=== PATIENT | female | born 1965 | race Caucasian/White ===

== ENCOUNTER 2017-01-31 22:40 | Observation (INO) | payer SELFPAY ==
[~2017-01-31] VITALS: Ht 157.5 cm; Wt 90.9 kg
[~2017-01-31 22:40] MED LIST: ACETTAB3 OR; AMOXICILLIN875 MG OR; ANTIDEPRESSANT; ANUCORT-HC25 MG RE; ANUSOL-HC25 MG RE; ASPIRIN EC81 MG PO; ATORVASTATIN CA40 MG PO; AUGMENTIN500TAB PO; AZITHROMYCIN500 MG PO; BENADRYL 50MG C50 MG OR; BENAZEPRIL10 M1 PO; BENAZEPRIL10 MG OR; BENAZEPRIL10 MG PO; BENZOCAINE 20% RE; BUSPAR10 M1 PO; BUSPAR15 M1 PO; BUTAL/APAP1 TAB OR; CIPROFLOXACIN250 MG PO; CIPROFLOXACN500 MG PO; CLOPIDOGREL75 MG PO; COZAAR100 MG OR; DARVOCET N-100100 - OR; DEPO-MEDROL80 MG/ML IM; EFFEXOR XR150 MG OR; EFFEXOR XR150 MG PO; EFFEXOR75 MG PO; FLEXERIL OR; FLEXERIL PO; FLEXERIL10 MG PO; GABAPENTIN300 MG PO; HALOPERIDOL0.5 MG PO; HYDROCHLOROTH12.5 MG OR; HYDROCO/APAP1 T10 PO; HYZAAR1 TA1 OR; IBUPROFEN600 MG PO; INDERAL 20MG TA20 MG OR; INDERAL 20MG TA20 MG PO; INDERAL 40MG TA40 MG OR; INDERAL 40MG TA40 MG PO; ISOSORB DIN30 MG PO; KEFLEX250 MG OR; KLONOPIN0.5 MG PO; KLONOPIN1 MG PO; LASIX20 MG OR; LIPITOR40 M1 PO; LORTAB 5 OR; LORTAB 7.5 OR; LORTAB 7.5 PO; MEDDOSEPAK OR; MEDDOSEPAK PO; MEDROL4 M1 PO; MELOXICAM7.5 MG OR; MELOXICAM7.5 MG PO; METRONIDAZOL500 MG PO; NAPROSYN500 MG PO; NEURONTIN300 MG PO; NEVANAC 0.1% OP; NITROSTAT0.4 MG SL; NORCO1 TA2 PO; NUPERCAINAL1 % RE; PRILOSEC20 MG OR; PRILOSEC20 MG/CAP PO; PROPANOLOL OR; PROPRANOLOL; PROPRANOLOL HCL20 MG PO; PROPRANOLOL PR; PROPRANOLOL20 MG OR; PROPRANOLOL40 MG OR; PROPRANOLOL80 M1 PO; ROBAXIN-750750 MG PO; TAM75CAP OR; TRAMADOL HCL50 MG PO; VENLAFAXINE HC150 MG PO; VENLAFAXINE HCL75 M1 PO; VENLAFAXINE150 M1; VENLAFAXINE75 M1 PO; VENLAFAXINE75 MG PO; VISTARIL 50MG C50 M1 PO; VISTARIL OR; WELLBUTRI1 OR; XANAX0.25 MG OR; ZANTAC 150 MAX150 MG PO; ZANTAC25 MG OR; ZOCOR20 M1 PO; ZOFRAN4 MG/TAB PO; ZOLPIDEM5 M1 PO; ZYMAR OP; ZYRTEC D OR
[2017-01-31 23:56] LABS: HEMATOCRIT 38.3 % (37.0-47.0); HEMOGLOBIN 13.3 g/dl (12.0-16.0); IMMATURE GRANULOCYTES 0.4 % (0.0-1.0); MEAN CELL VOLUME 90.1 fL CALC (80.0-100.0); MEAN CORPUSCULAR HGB 31.3 pG CALC (26.0-32.0); MEAN CORPUSCULAR HGB CONC 34.7 g/L CALC (32.0-36.0); NEUT# 4.01 thou/uL (2.00-7.15); RED BLOOD COUNT 4.25 mill/uL (4.20-5.60); RED CELL DISTRI WIDTH 12.8 % (11.5-15.5)
[2017-02-01 00:11] LABS: ALBUMIN 4.5 g/dL (3.2-5.0); ALKALINE PHOSPHATASE 120 u/l (38-126); ANION GAP 17 (6-22 (CALC)); BILIRUBIN, TOTAL 0.3 mg/dL (0.0-1.4); BUN 16 mg/dL (7-17); BUN/CREATININE RATIO 17 (12-20 (CALC)); CARBON DIOXIDE 24 mmol/l (22-30); CHLORIDE 110 mmol/l (95-108); GFR 58 ML/MIN (>=60 (CALC)); GFR FOR AFR.AMER. > 60 ML/MIN (>=60 (CALC)); GLUCOSE 116 mg/dL (65-105); LIPASE 124 u/l (23-300); POTASSIUM 4.2 mmol/l (3.5-5.1); SGOT/AST 25 u/l (14-36); SGPT/ALT 34 u/l (9-52); SODIUM 146 mmol/l (137-146); TOTAL PROTEIN 7.2 g/dL (6.3-8.2)
[2017-02-01 00:12] LABS: ACT PARTIAL THROMBO TIME 24.3 SECONDS (20.0-32.5); INTERNATIONAL NORMALIZED RATIO 0.9 RATIO (0.7-1.3); PROTHROMBIN TIME 10.3 SECONDS (9.0-12.5)
[2017-02-01 00:23] LABS: MYOGLOBIN 40 ng/mL (0 - 62)
[2017-02-01 02:11] VITALS: BP 111/68
[2017-02-01 06:20] VITALS: BP 120/74
[2017-02-01 07:55] VITALS: BP 130/88
[2017-02-01 08:10] LABS: URINE BILIRUBIN - DIPSTICK NEGATIVE (NEGATIVE); URINE BLOOD DIPSTICK SMALL (NEGATIVE); URINE COLOR YELLOW; URINE GLUCOSE - DIPSTICK NEGATIVE (NEGATIVE); URINE KETONE NEGATIVE (NEGATIVE); URINE NITRITE - DIPSTICK NEGATIVE (Negative); URINE PROTEIN - DIPSTICK NEGATIVE (NEG-TRACE); URINE SPECIFIC GRAVITY 1.015; URINE UROBILINOGEN - DIPSTICK 0.2 E.U./dL (0.2)
[2017-02-01 08:13] LABS: URINE BACTERIA FEW hpf; URINE CLARITY HAZY; URINE EPITHELIAL CELLS FEW EPI/hpf (0-FEW); URINE LEUK ESTERASE SMALL (NEGATIVE)
[2017-02-01 08:17] LABS: COCAINE NEGATIVE (NEGATIVE); TETRAHYDROCANNABIONOL NEGATIVE (NEGATIVE)
[2017-02-01 08:18] LABS: BARBITURATES NEGATIVE (NEGATIVE); METHADONE NEGATIVE (NEGATIVE); OXCYCODONE NEGATIVE (NEGATIVE); TRICYLIC ANTIDEPRESSANTS POSITIVE (NEGATIVE)
[2017-02-01 12:00] VITALS: BP 138/79
[2017-02-01] MEDS ORDERED: KLONOPIN1 MG PO (12:36)
[2017-02-01] MEDS ORDERED: NAPROXEN500 MG PO (12:37)
[2017-02-01] MEDS ORDERED: ATORVASTATIN CA10 MG PO (12:40)
[2017-02-01] MEDS ORDERED: PLAVIX75 MG PO (12:40)
[2017-02-01] MEDS ORDERED: ADULT ASPIRIN E81 MG PO (12:40)
== END 2017-02-01 13:55 | disposition home or self-care (01) | DRG 313 ==
LOC: ED 22:40 → ED-I 02-01 00:40 → ED 02-01 01:00 → MS2 02-01 01:01
PROVIDERS: Emergency Medicine; ADMIT Internal Medicine; ATTEND Internal Medicine
DX: R07.89 Other chest pain (principal); I10 Essential (primary) hypertension; I25.10 Atherosclerotic heart disease of native coronary artery without angina pectoris; I48.91 Unspecified atrial fibrillation; G50.0 Trigeminal neuralgia; E03.9 Hypothyroidism, unspecified; F17.210 Nicotine dependence, cigarettes, uncomplicated; F41.1 Generalized anxiety disorder; I25.2 Old myocardial infarction; F43.10 Post-traumatic stress disorder, unspecified; Z95.5 Presence of coronary angioplasty implant and graft; Z79.02 Long term (current) use of antithrombotics/antiplatelets
CPT/HCPCS: G0378

== ENCOUNTER 2018-11-29 11:44 | Emergency (ER) | payer MEDICARE ==
[~2018-11-29] VITALS: Ht 157.5 cm; Wt 92.3 kg
[~2018-11-29 11:44] MED LIST changes: +ADULT ASPIRIN E81 MG PO; +ATORVASTATIN CA10 MG PO; +NAPROXEN500 MG PO; +PLAVIX75 MG PO
[2018-11-29] MEDS ORDERED: CLONAZEPAM1 MG PO (12:04)
[2018-11-29 12:40] LABS: HEMOGLOBIN 13.8 g/dl (12.0-16.0); IMMATURE GRANULOCYTES 0.3 % (0.0-5.0); MEAN CELL VOLUME 90.1 fL CALC (80.0-100.0); MEAN CORPUSCULAR HGB 30.3 pG CALC (26.0-32.0); MEAN CORPUSCULAR HGB CONC 33.7 g/L CALC (32.0-36.0); RED BLOOD COUNT 4.55 mill/uL (4.20-5.60); RED CELL DISTRI WIDTH 12.8 % (11.5-15.5)
[2018-11-29 12:55] LABS: ALBUMIN 4.6 g/dL (3.2-5.0); CREATININE 1.2 mg/dL (0.5-1.0); POTASSIUM 4.6 mmol/l (3.5-5.1); TOTAL PROTEIN 7.7 g/dL (6.3-8.2)
[2018-11-29 13:02] LABS: BILIRUBIN, TOTAL 0.5 mg/dL (0.0-1.4)
[2018-11-29 13:05] LABS: URINE BILIRUBIN - DIPSTICK NEGATIVE (NEGATIVE); URINE BLOOD DIPSTICK TRACE-INTACT (NEGATIVE); URINE COLOR YELLOW; URINE GLUCOSE - DIPSTICK NEGATIVE (NEGATIVE); URINE KETONE NEGATIVE (NEGATIVE); URINE LEUK ESTERASE LARGE (NEGATIVE); URINE NITRITE - DIPSTICK NEGATIVE (Negative); URINE PROTEIN - DIPSTICK 30 mg/dL (NEG-TRACE); URINE SPECIFIC GRAVITY 1.025; URINE UROBILINOGEN - DIPSTICK 0.2 E.U./dL (0.2)
[2018-11-29 13:22] LABS: URINE BACTERIA MODERATE hpf; URINE SQUAMOUS EPITHELIAL CELL FEW EPI/hpf (0-FEW); URINE WBC 20-50 WBC/hpf (0-5)
[2018-11-29] MEDS ORDERED: KEFLEX500 MG PO (13:50)
[2018-11-29 14:11] VITALS: BP 116/70
== END 2018-11-29 14:26 | disposition home or self-care (01) ==
LOC: ED 11:44
DX: N39.0 Urinary tract infection, site not specified (principal); I10 Essential (primary) hypertension; I25.2 Old myocardial infarction; B96.20 Unspecified Escherichia coli [E. coli] as the cause of diseases classified elsewhere; Z16.12 Extended spectrum beta lactamase (ESBL) resistance; Z95.5 Presence of coronary angioplasty implant and graft

== ENCOUNTER 2018-12-01 10:50 | Emergency (ER) | payer MEDICARE ==
[~2018-12-01] VITALS: Ht 157.5 cm; Wt 92.0 kg
[~2018-12-01 10:50] MED LIST changes: +CLONAZEPAM1 MG PO; +KEFLEX500 MG PO
[2018-12-01] MEDS ORDERED: RISPERIDONE0.5 MG PO (11:05)
[2018-12-01] MEDS ORDERED: NITROFURANTN100 M2 PO (11:47)
[2018-12-01 12:05] VITALS: BP 115/58
== END 2018-12-01 12:05 | disposition home or self-care (01) ==
LOC: ED 10:50
DX: N39.0 Urinary tract infection, site not specified (principal); B96.20 Unspecified Escherichia coli [E. coli] as the cause of diseases classified elsewhere; I10 Essential (primary) hypertension; I25.2 Old myocardial infarction; Z16.12 Extended spectrum beta lactamase (ESBL) resistance

== ENCOUNTER 2019-04-11 | Emergency (ER) | payer MEDICARE ==
[~2019-04-11] MED LIST changes: +AMBIEN5 MG PO; +HYDROXYCHLOR200 M1 PO; +HYDROXYZINE HCL25 M1 PO; +LEVOTHYROXIN75 MCG PO; +NITROFURANTN100 M2 PO; +RISPERIDONE0.5 MG PO; +WELLBUTRIN XL300 MG PO
[2019-04-11] MEDS ORDERED: BENAZEPRIL5 MG PO (14:00)
[2019-04-11 16:12] LABS: URINE BILIRUBIN - DIPSTICK NEGATIVE (NEGATIVE); URINE BLOOD DIPSTICK TRACE-INTACT (NEGATIVE); URINE COLOR YELLOW; URINE GLUCOSE - DIPSTICK NEGATIVE (NEGATIVE); URINE KETONE NEGATIVE (NEGATIVE); URINE LEUK ESTERASE LARGE (NEGATIVE); URINE NITRITE - DIPSTICK NEGATIVE (Negative); URINE PROTEIN - DIPSTICK NEGATIVE (NEG-TRACE); URINE UROBILINOGEN - DIPSTICK 0.2 E.U./dL (0.2)
[2019-04-11 16:18] LABS: URINE BACTERIA FEW hpf; URINE SQUAMOUS EPITHELIAL CELL FEW EPI/hpf (0-FEW); URINE WBC TNTC WBC/hpf (0-5)
[2019-04-11] MEDS ORDERED: CIPROFLOXACN500 MG PO (16:31)
== END 2019-04-11 16:55 | disposition home or self-care (01) ==
DX: N39.0 Urinary tract infection, site not specified (principal); B96.20 Unspecified Escherichia coli [E. coli] as the cause of diseases classified elsewhere; Z16.12 Extended spectrum beta lactamase (ESBL) resistance

== ENCOUNTER 2019-06-21 19:56 | Observation (INO) | payer MEDICARE ==
[~2019-06-21] VITALS: Ht 157.5 cm; Wt 89.8 kg
[~2019-06-21 19:56] MED LIST changes: +BENAZEPRIL5 MG PO
--- NOTE | 2019-06-21 20:02 | NUR ---
STRAIGHT TO ROOM
[2019-06-21 20:33] LABS: HEMATOCRIT 38.2 % (37.0-47.0); HEMOGLOBIN 12.9 g/dl (12.0-16.0); IMMATURE GRANULOCYTES 0.2 % (0.0-5.0); MEAN CELL VOLUME 87.4 fL CALC (80.0-100.0); MEAN CORPUSCULAR HGB 29.5 pG CALC (26.0-32.0); MEAN CORPUSCULAR HGB CONC 33.8 g/dL CAL (32.0-36.0); NEUT# 4.4 thou/uL (2.00-7.15); RED BLOOD COUNT 4.37 mill/uL (4.20-5.60); RED CELL DISTRI WIDTH 13.8 % (11.5-15.5)
[2019-06-21 20:49] LABS: ALBUMIN 4.2 g/dL (3.2-5.0); ALKALINE PHOSPHATASE 100 u/l (38-126); ANION GAP 13 (6-22 (CALC)); BILIRUBIN, TOTAL 0.2 mg/dL (0.0-1.4); BUN 15 mg/dL (7-17); BUN/CREATININE RATIO 12 (12-20 (CALC)); CARBON DIOXIDE 25 mmol/l (22-30); CHLORIDE 104 mmol/l (95-108); CREATININE 1.3 mg/dL (0.5-1.0); GFR 43 ML/MIN (>=60 (CALC)); GFR FOR AFR.AMER. 52 ML/MIN (>=60 (CALC)); LIPASE 104 u/l (23-300); SGOT/AST 31 u/l (14-36); SODIUM 138 mmol/l (137-146); TOTAL PROTEIN 7.6 g/dL (6.3-8.2)
--- NOTE | 2019-06-21 21:40 | NUR ---
COMFORTABLE. ADVISED OF ADMISSION.
--- NOTE | 2019-06-21 22:12 | NUR ---
Admission Note Report Given to: JANEY FERNANDEZ Transported by: X Wheelchair Stretcher Transported with: X Nurse Transporter X Patent IV O2 X Maid Supervisor Location: ICU X [facility]
[2019-06-21 22:53] VITALS: BP 139/81
--- NOTE | 2019-06-21 23:00 | NUR ---
PATIENT ADMITTED FROM ER VIA WHEELCHAIR WITH ER STAFF IN ATTENDANCE. PATIENT AWAKE ALERT AND ORIENTEDX3. PATIENT ADMITTED FOR CHEST PAIN. STATES THAT SHE CAME IN TONIGHT FOR CHEST PAIN AND "HEARTBURN". STATES THAT IS RESOLVED AT THIS TIME BUT HAVING PAIN TO LEFT SHOULDER PAIN. SKIN IS WARM AND DRY. PATIENT WITH FLUSHED IN THE FACE AND CHEST. HX OF LUPUS. TELE MONITOR IN PLACE. IV SITE TO LEFT AC INTACT AND IS HEALTHY AT THIS TIME. PATIENT ORIENTED TO ROOM AND SURROUNDINGS. INSTRUCTED ON USE OF NURSE CALL LIGHT. PROVIDED WITH TURKEY DINNER AND DRINK. SAFETY PRECAUTIONS REINFORCED. CALL LIGHT IN REACH. WILL CONT TO MONITOR.
[2019-06-21 23:50] VITALS: BP 124/75
--- NOTE | 2019-06-22 01:37 | NUR ---
PATIENT RESTING IN BED-VOIDING QS YELLOW URINE AND SPEC OBTAINED AND SENT TO LAB. MEDICATED WITH KLONOPIN0.5MG TABS 2 FOR SLEEP. CALL LIGHT IN REACH. WILL CONT TO MONITOR.
[2019-06-22 01:45] LABS: URINE BILIRUBIN - DIPSTICK NEGATIVE (NEGATIVE); URINE BLOOD DIPSTICK NEGATIVE (NEGATIVE); URINE CLARITY CLEAR; URINE COLOR YELLOW; URINE GLUCOSE - DIPSTICK NEGATIVE (NEGATIVE); URINE KETONE NEGATIVE (NEGATIVE); URINE LEUK ESTERASE SMALL (Negative); URINE NITRITE - DIPSTICK POSITIVE (Negative); URINE PROTEIN - DIPSTICK NEGATIVE (NEG-TRACE); URINE UROBILINOGEN - DIPSTICK 0.2 E.U./dL (0.2)
[2019-06-22 01:52] LABS: URINE BACTERIA MANY hpf; URINE EPITHELIAL CELLS FEW EPI/hpf (0-FEW); URINE WBC 20-50 WBC/hpf (0-5)
[2019-06-22 03:36] VITALS: BP 121/81
--- NOTE | 2019-06-22 05:17 | NUR ---
PATIENT APPEARS SLEEPING AT THIS TIME WITH EYES CLOSED. RESP ARE EVEN AND UNLABORED. TELE MONITOR IN PLACE. CALL LIGHT IN REACH. WILL CONT TO MONITOR.
[2019-06-22 07:04] LABS: CHOLESTEROL HDL RATIO 3.2 (<4.4 (CALC)); MAGNESIUM 1.6 mg/dL (1.6-2.3)
--- NOTE | 2019-06-22 07:38 | NUR ---
RECIEVED REPORT FROM JANEY FERNANDEZ. PT RESTING IN LOW FOWLERS POSTION. INTRODUCED SELF TO PT. BREATHING IS EVEN AND UNLABORED ON ROOM AIR. PT DENIES ANY PAIN OR DISCOMFORTS AT THIS TIME. ALL SAFTEY PRECAUTIONS IN PLACE WITH CALL LIGHT IN REACH. WILL CONTINUE TO MONITOR.
[2019-06-22 08:00] VITALS: BP 123/78
--- NOTE | 2019-06-22 08:00 | NUR ---
ASSESMENT COMPLETE AND VITALS OBTAINED. BP 123/78, HR 81, O2 96% ON ROOM AIR. HEART RHYTHM IS NORMAL, BREATH SOUNDS IS CLEAR, BOWEL SOUNDS ARE ACTIVE IN ALL QUADRANTS. RADIAL AND PEDAL PULSES ARE STRONG, NO EDEMA. CAPILLARY REFILL IS NORMAL. IV FLUSHED, SITE APPEARS HEALTHY AND PATENT. SKIN IS COOL AND DRY. PT DENIES ANY PAIN OR DISCOMFORTS AT THIS TIME. ALL SAFTEY PRECAUTIONS IN PLACE WITH THE CALL LIGHT IN REACH. ENCOURAGED PT TO CALL FOR ASSISTANCE. WILL CONTINUE TO MONITOR.
[2019-06-22 11:59] VITALS: BP 98/71
--- NOTE | 2019-06-22 12:00 | NUR ---
PT RESTING IN HIGH FOWLERS EATING LUNCH. BREATHING IN EVEN AND UNLABORED ON ROOM AIR. PT DENIES ANY PAIN OR DISCOMFORTS AT THIS TIME.ALL SAFTEY PRECAUTIONS IN PLACE WITH CALL LIGHT IN REACH. WILL CONTINUE TO MONITOR,
--- NOTE | 2019-06-22 13:32 | NUR ---
IV REMOVED WITH CATHATER STILL INTACT, PT TOLERATED WELL. ALL DISCHARGE INSTRUCTIONS AND EDUCATION GIVEN AND EXPLAINED TO PT. PT VERBALIZED UNDERSTANDING.PT WAITING ON SON FOR TRANSPORTATION.
== END 2019-06-22 13:47 | disposition home or self-care (01) ==
LOC: ED 19:56 → ED-I 21:14 → ED 21:32 → MS2 21:33 → ED-I 21:33 → MS2 22:13
PROVIDERS: ADMIT Internal Medicine; ATTEND Internal Medicine
DX: R07.9 Chest pain, unspecified (principal); F41.1 Generalized anxiety disorder; R82.71 Bacteriuria; I10 Essential (primary) hypertension; I25.10 Atherosclerotic heart disease of native coronary artery without angina pectoris; E78.5 Hyperlipidemia, unspecified; Z87.891 Personal history of nicotine dependence; Z79.02 Long term (current) use of antithrombotics/antiplatelets; Z79.82 Long term (current) use of aspirin; Z95.5 Presence of coronary angioplasty implant and graft
CPT/HCPCS: G0378

== ENCOUNTER 2020-01-16 12:28 | Emergency (ER) | payer MEDICARE ==
[~2020-01-16] VITALS: Ht 160 cm; Wt 98.6 kg
[2020-01-16 12:50] VITALS: BP 124/90
[2020-01-16] MEDS ORDERED: METOPROL TAR25 MG PO (13:03)
== END 2020-01-16 13:24 | disposition home or self-care (01) ==
LOC: ED 12:28
DX: L76.22 Postprocedural hemorrhage of skin and subcutaneous tissue following other procedure (principal); I10 Essential (primary) hypertension; F41.9 Anxiety disorder, unspecified; I25.2 Old myocardial infarction; F31.9 Bipolar disorder, unspecified; Y84.0 Cardiac catheterization as the cause of abnormal reaction of the patient, or of later complication, without mention of misadventure at the time of the procedure

== ENCOUNTER 2020-04-17 21:17 | Emergency (ER) | payer MEDICARE ==
[~2020-04-17] VITALS: Ht 160 cm; Wt 95.2 kg
[~2020-04-17 21:17] MED LIST changes: +METOPROL TAR25 MG PO
[2020-04-17 22:25] LABS: HEMATOCRIT 38.8 % (37.0-47.0); HEMOGLOBIN 12.8 g/dl (12.0-16.0); IMMATURE GRANULOCYTES 0.3 % (0.0-5.0); MEAN CELL VOLUME 92.2 fL CALC (80.0-100.0); MEAN CORPUSCULAR HGB 30.4 pG CALC (26.0-32.0); NEUT# 4.47 thou/uL (2.00-7.15); RED BLOOD COUNT 4.21 mill/uL (4.20-5.60); RED CELL DISTRI WIDTH 13.4 % (11.5-15.5)
[2020-04-17 22:44] LABS: ACT PARTIAL THROMBO TIME 24.2 SECONDS (20.0-32.5); PROTHROMBIN TIME 10.2 SECONDS (9.0-12.5)
[2020-04-17 22:47] LABS: ALBUMIN 4.4 g/dL (3.2-5.0); ALKALINE PHOSPHATASE 110 u/l (38-126); ANION GAP 13 (6-22 (CALC)); BILIRUBIN, TOTAL 0.5 mg/dL (0.0-1.4); BUN 19 mg/dL (7-17); BUN/CREATININE RATIO 17 (12-20 (CALC)); CARBON DIOXIDE 26 mmol/l (22-30); CHLORIDE 106 mmol/l (95-108); CREATININE 1.1 mg/dL (0.5-1.0); GFR 52 ML/MIN (>=60 (CALC)); GFR FOR AFR.AMER. > 60 ML/MIN (>=60 (CALC)); LIPASE 93 u/l (23-300); POTASSIUM 4.3 mmol/l (3.5-5.1); SGOT/AST 33 u/l (14-36); SODIUM 140 mmol/l (137-146); TOTAL PROTEIN 7.4 g/dL (6.3-8.2)
[2020-04-18 01:30] VITALS: BP 120/68
== END 2020-04-18 01:40 | disposition home or self-care (01) ==
LOC: ED 21:17
DX: R07.9 Chest pain, unspecified (principal); I25.10 Atherosclerotic heart disease of native coronary artery without angina pectoris; I10 Essential (primary) hypertension; F41.9 Anxiety disorder, unspecified; F31.9 Bipolar disorder, unspecified; Z95.5 Presence of coronary angioplasty implant and graft; Z20.822 Contact with and (suspected) exposure to COVID-19

== ENCOUNTER 2021-01-24 15:12 | Emergency (ER) | payer MEDICARE ==
[~2021-01-24] VITALS: Ht 160 cm; Wt 75.0 kg
[2021-01-24] MEDS ORDERED: PREDNISONE50 MG PO (17:21)
[2021-01-24] MEDS ORDERED: DOXYCYC MONO100 M2 PO (17:21)
[2021-01-24] MEDS ORDERED: PROAIR HFA108 MCG/AC PO (17:21)
[2021-01-24] MEDS ORDERED: CHERATUSSIN PO (17:21)
[2021-01-24 17:54] VITALS: BP 145/79
== END 2021-01-24 17:54 | disposition home or self-care (01) ==
LOC: ED 15:12
DX: J06.9 Acute upper respiratory infection, unspecified (principal); I10 Essential (primary) hypertension; F41.9 Anxiety disorder, unspecified; F31.9 Bipolar disorder, unspecified; I25.2 Old myocardial infarction; Z20.822 Contact with and (suspected) exposure to COVID-19

== ENCOUNTER 2021-03-08 10:15 | Emergency (ER) | payer MEDICARE ==
[~2021-03-08] VITALS: Ht 160 cm; Wt 68.0 kg
[~2021-03-08 10:15] MED LIST changes: +CHERATUSSIN PO; +DOXYCYC MONO100 M2 PO; +PREDNISONE50 MG PO; +PROAIR HFA108 MCG/AC PO
[2021-03-08 12:11] LABS: HEMATOCRIT 39.1 % (37.0-47.0); HEMOGLOBIN 13.3 g/dl (12.0-16.0); IMMATURE GRANULOCYTES 0.2 % (0.0-5.0); MEAN CELL VOLUME 90.9 fL CALC (80.0-100.0); MEAN CORPUSCULAR HGB 30.9 pG CALC (26.0-32.0); NEUT# 2.59 thou/uL (2.00-7.15); RED BLOOD COUNT 4.3 mill/uL (4.20-5.60); RED CELL DISTRI WIDTH 13.5 % (11.5-15.5)
[2021-03-08 12:12] LABS: BILIRUBIN, TOTAL 0.4 mg/dL (0.0-1.4); CREATININE 1.2 mg/dL (0.5-1.0); POTASSIUM 4.9 mmol/l (3.5-5.1); TOTAL PROTEIN 6.9 g/dL (6.3-8.2)
[2021-03-08 12:19] LABS: URINE BILIRUBIN - DIPSTICK NEGATIVE (NEGATIVE); URINE BLOOD DIPSTICK NEGATIVE (NEGATIVE); URINE COLOR YELLOW; URINE GLUCOSE - DIPSTICK NEGATIVE (NEGATIVE); URINE KETONE NEGATIVE (NEGATIVE); URINE LEUK ESTERASE NEGATIVE (NEGATIVE); URINE PH 6.5 (4.5-8.0); URINE PROTEIN - DIPSTICK NEGATIVE (NEG-TRACE); URINE UROBILINOGEN - DIPSTICK 0.2 E.U./dL (0.2)
[2021-03-08 12:20] LABS: URINE NITRITE - DIPSTICK NEGATIVE (Negative)
[2021-03-08 14:30] VITALS: BP 131/63
== END 2021-03-08 14:30 | disposition home or self-care (01) ==
LOC: ED 10:15
PROVIDERS: Family Medicine
DX: K92.1 Melena (principal); I10 Essential (primary) hypertension; F31.9 Bipolar disorder, unspecified; F41.9 Anxiety disorder, unspecified; E66.9 Obesity, unspecified; I25.2 Old myocardial infarction; Z98.890 Other specified postprocedural states
CPT/HCPCS: Q9967

== ENCOUNTER 2021-10-31 14:20 | Observation (INO) | payer MEDICARE ==
[~2021-10-31] VITALS: Ht 160 cm; Wt 100.0 kg
[2021-10-31] VITALS (8 sets, daily range): BP systolic 128–158; BP diastolic 62–94
[2021-10-31 15:35] LABS: IMMATURE GRANULOCYTES 0.2 % (0.0-5.0); MEAN CORPUSCULAR HGB 30.4 pG CALC (26.0-32.0); MEAN CORPUSCULAR HGB CONC 34.5 g/dL CAL (32.0-36.0); NEUT# 3.31 thou/uL (2.00-7.15); RED BLOOD COUNT 6.02 mill/uL (4.20-5.60); RED CELL DISTRI WIDTH 13.6 % (11.5-15.5)
[2021-10-31 15:46] LABS: HEMOGLOBIN 18.3 g/dl (12.0-16.0)
[2021-10-31 15:50] LABS: ALKALINE PHOSPHATASE 91 u/l (38-126); BILIRUBIN, TOTAL 0.3 mg/dL (0.0-1.4); BUN 19 mg/dL (7-17); BUN/CREATININE RATIO 17 (12-20 (CALC)); CARBON DIOXIDE 30 mmol/l (22-30); CHLORIDE 100 mmol/l (95-108); CREATININE 1.1 mg/dL (0.5-1.0); GFR FOR AFR.AMER. > 60 ML/MIN (>=60 (CALC)); GFR OTHER RACES 51 ML/MIN (>=60 (CALC)); SGOT/AST 30 u/l (14-36); SODIUM 141 mmol/l (137-146); TOTAL PROTEIN 7.7 g/dL (6.3-8.2)
[2021-10-31 15:53] LABS: ALBUMIN 4.9 g/dL (3.2-5.0); ANION GAP 15 (6-22 (CALC)); POTASSIUM 3.9 mmol/l (3.5-5.1)
[2021-10-31 16:02] LABS: MYOGLOBIN 95 ng/mL (0 - 62)
[2021-10-31] MEDS ORDERED: CYCLOBENZAPRINE10 MG PO (16:34)
[2021-10-31] MEDS ORDERED: HYDROXYZ HCL25 MG PO (16:34)
[2021-10-31] MEDS ORDERED: CLOBETASOL0.051 EX (16:35)
[2021-10-31] MEDS ORDERED: OMEPRAZOLE DR40 MG PO (16:35)
[2021-10-31] MEDS ORDERED: CLONAZEPAM1 MG PO (16:36)
[2021-11-01 00:15] VITALS: BP 131/71
[2021-11-01 04:21] VITALS: BP 111/66
[2021-11-01 06:40] LABS: IMMATURE GRANULOCYTES 0.1 % (0.0-5.0); MEAN CELL VOLUME 88.3 fL CALC (80.0-100.0); MEAN CORPUSCULAR HGB 30.5 pG CALC (26.0-32.0); MEAN CORPUSCULAR HGB CONC 34.5 g/dL CAL (32.0-36.0); NEUT# 4.29 thou/uL (2.00-7.15); RED BLOOD COUNT 4.46 mill/uL (4.20-5.60); RED CELL DISTRI WIDTH 13.2 % (11.5-15.5)
[2021-11-01 06:41] LABS: HEMATOCRIT 39.4 % (37.0-47.0); HEMOGLOBIN 13.6 g/dl (12.0-16.0)
[2021-11-01 07:13] LABS: ALBUMIN 4.3 g/dL (3.2-5.0); ALKALINE PHOSPHATASE 95 u/l (38-126); ANION GAP 15 (6-22 (CALC)); BILIRUBIN, TOTAL 0.3 mg/dL (0.0-1.4); BUN 20 mg/dL (7-17); BUN/CREATININE RATIO 18 (12-20 (CALC)); CARBON DIOXIDE 27 mmol/l (22-30); CHLORIDE 101 mmol/l (95-108); CREATININE 1.1 mg/dL (0.5-1.0); GFR FOR AFR.AMER. > 60 ML/MIN (>=60 (CALC)); GFR OTHER RACES 51 ML/MIN (>=60 (CALC)); SGOT/AST 30 u/l (14-36); SODIUM 139 mmol/l (137-146); TOTAL PROTEIN 6.5 g/dL (6.3-8.2)
[2021-11-01 07:53] VITALS: BP 112/56
[2021-11-01 08:37] VITALS: BP 133/55
[2021-11-01 08:41] VITALS: BP 133/55
== END 2021-11-01 12:00 | disposition home or self-care (01) ==
LOC: ED 14:20 → ED-I 16:00 → ED 17:46 → MS2 17:47
PROVIDERS: Nurse Practitioner; ADMIT Internal Medicine; ATTEND Internal Medicine
DX: R07.9 Chest pain, unspecified (principal); I25.10 Atherosclerotic heart disease of native coronary artery without angina pectoris; I10 Essential (primary) hypertension; F41.1 Generalized anxiety disorder; F31.9 Bipolar disorder, unspecified; F43.10 Post-traumatic stress disorder, unspecified; G50.0 Trigeminal neuralgia; E78.5 Hyperlipidemia, unspecified; M35.00 Sjogren syndrome, unspecified; L90.0 Lichen sclerosus et atrophicus; I25.2 Old myocardial infarction; Z79.02 Long term (current) use of antithrombotics/antiplatelets; Z95.5 Presence of coronary angioplasty implant and graft; Z87.891 Personal history of nicotine dependence; Z20.822 Contact with and (suspected) exposure to COVID-19

== ENCOUNTER 2021-11-03 05:33 | Emergency (ER) | payer MEDICARE ==
[~2021-11-03] VITALS: Ht 160 cm; Wt 100.0 kg
[~2021-11-03 05:33] MED LIST changes: +CLOBETASOL0.051 EX; +CYCLOBENZAPRINE10 MG PO; +HYDROXYZ HCL25 MG PO; +OMEPRAZOLE DR40 MG PO
[2021-11-03 06:11] LABS: HEMATOCRIT 41.4 % (37.0-47.0); HEMOGLOBIN 14.1 g/dl (12.0-16.0); IMMATURE GRANULOCYTES 0.1 % (0.0-5.0); MEAN CELL VOLUME 90.8 fL CALC (80.0-100.0); MEAN CORPUSCULAR HGB 30.9 pG CALC (26.0-32.0); MEAN CORPUSCULAR HGB CONC 34.1 g/dL CAL (32.0-36.0); NEUT# 4.39 thou/uL (2.00-7.15); RED BLOOD COUNT 4.56 mill/uL (4.20-5.60); RED CELL DISTRI WIDTH 13.3 % (11.5-15.5)
[2021-11-03 06:25] LABS: ALBUMIN 4.8 g/dL (3.2-5.0); ALKALINE PHOSPHATASE 95 u/l (38-126); BILIRUBIN, TOTAL 0.3 mg/dL (0.0-1.4); BUN 16 mg/dL (7-17); BUN/CREATININE RATIO 14 (12-20 (CALC)); CHLORIDE 98 mmol/l (95-108); CREATININE 1.2 mg/dL (0.5-1.0); GFR FOR AFR.AMER. 56 ML/MIN (>=60 (CALC)); GFR OTHER RACES 46 ML/MIN (>=60 (CALC)); LIPASE 60 u/l (23-300); POTASSIUM 3.5 mmol/l (3.5-5.1); SGOT/AST 31 u/l (14-36); SODIUM 141 mmol/l (137-146); TOTAL PROTEIN 7.6 g/dL (6.3-8.2)
[2021-11-03 06:31] LABS: ANION GAP 14 (6-22 (CALC)); CARBON DIOXIDE 33 mmol/l (22-30)
[2021-11-03 06:38] LABS: MYOGLOBIN 102 ng/mL (0 - 62)
[2021-11-03 09:25] VITALS: BP 152/86
== END 2021-11-03 09:30 | disposition still patient (30) ==
LOC: ED 05:33
PROVIDERS: Emergency Medicine
DX: Z53.29 Procedure and treatment not carried out because of patient's decision for other reasons (principal); R51.9 Headache, unspecified; I10 Essential (primary) hypertension; I25.10 Atherosclerotic heart disease of native coronary artery without angina pectoris

== ENCOUNTER 2021-11-15 10:27 | Emergency (ER) | payer MEDICARE ==
[~2021-11-15] VITALS: Ht 160 cm; Wt 90.0 kg
[2021-11-15] MEDS ORDERED: CIPROFLOXACN500 MG PO (10:43)
[2021-11-15] MEDS ORDERED: KEFLEX500 MG PO (10:43)
[2021-11-15 10:56] VITALS: BP 146/92
== END 2021-11-15 10:58 | disposition home or self-care (01) ==
LOC: ED 10:27
DX: S91.332A Puncture wound without foreign body, left foot, initial encounter (principal); I10 Essential (primary) hypertension; F41.9 Anxiety disorder, unspecified; F31.9 Bipolar disorder, unspecified; I25.2 Old myocardial infarction; W45.0XXA Nail entering through skin, initial encounter; Y92.007 Garden or yard of unspecified non-institutional (private) residence as the place of occurrence of the external cause

== ENCOUNTER 2022-02-18 19:44 | Emergency (ER) | payer MEDICARE ==
[~2022-02-18] VITALS: Ht 160 cm; Wt 94.8 kg
[2022-02-18 20:39] VITALS: BP 150/88
[2022-02-18 20:45] VITALS: BP 128/79
[2022-02-18] MEDS ORDERED: PREDNISONE50 MG PO (20:53)
[2022-02-18 21:00] VITALS: BP 141/75
[2022-02-18 21:24] VITALS: BP 141/75
== END 2022-02-18 21:34 | disposition home or self-care (01) ==
LOC: ED 19:44
DX: L27.0 Generalized skin eruption due to drugs and medicaments taken internally (principal); T40.715A Adverse effect of cannabis, initial encounter; I10 Essential (primary) hypertension; F41.9 Anxiety disorder, unspecified; F31.9 Bipolar disorder, unspecified; I25.2 Old myocardial infarction

== ENCOUNTER 2022-09-16 12:24 | Emergency (ER) | payer MEDICARE, MEDICAID ==
[~2022-09-16] VITALS: Ht 160 cm; Wt 94.0 kg
[2022-09-16 12:49] VITALS: BP 133/114
[2022-09-16 12:50] VITALS: BP 116/74
[2022-09-16 13:17] VITALS: BP 116/74
== END 2022-09-16 13:19 | disposition home or self-care (01) ==
LOC: ED 12:24
PROC: 0HQGXZZ Repair Left Hand Skin, External Approach (ICD-10-PCS; principal; 2022-09-16)
DX: S61.211A Laceration without foreign body of left index finger without damage to nail, initial encounter (principal); I10 Essential (primary) hypertension; F41.9 Anxiety disorder, unspecified; F31.9 Bipolar disorder, unspecified; I25.2 Old myocardial infarction; W26.0XXA Contact with knife, initial encounter; Z79.02 Long term (current) use of antithrombotics/antiplatelets

== ENCOUNTER 2024-02-18 19:23 | Emergency (ER) | payer MEDICARE ==
[~2024-02-18] VITALS: Ht 160 cm; Wt 75.0 kg
[~2024-02-18 19:23] MED LIST changes: +PERCOGESI1 PO; +RISPERDAL1 MG PO; -RISPERIDONE0.5 MG PO
[2024-02-18 21:48] LABS: URINE BILIRUBIN - DIPSTICK Negative (NEGATIVE); URINE BLOOD DIPSTICK Small (NEGATIVE); URINE COLOR Straw; URINE GLUCOSE - DIPSTICK Negative (NEGATIVE); URINE KETONE Negative (NEGATIVE); URINE LEUK ESTERASE Small (NEGATIVE); URINE NITRITE - DIPSTICK Negative (Negative); URINE PROTEIN - DIPSTICK Negative (NEG-TRACE); URINE UROBILINOGEN - DIPSTICK 0.2 E.U./dL (0.2)
[2024-02-18 21:58] LABS: URINE BACTERIA FEW hpf; URINE RBC 0-2 RBC/hpf (0-5); URINE SQUAMOUS EPITHELIAL CELL FEW EPI/hpf (0-FEW); URINE TRANSITIONAL EPI. CELLS FEW hpf
[2024-02-18 23:59] VITALS: BP 136/89
== END 2024-02-18 23:59 | disposition home or self-care (01) ==
LOC: ED 19:23
PROVIDERS: Family Medicine
DX: L90.0 Lichen sclerosus et atrophicus (principal); I10 Essential (primary) hypertension; F41.9 Anxiety disorder, unspecified; F31.9 Bipolar disorder, unspecified; I25.2 Old myocardial infarction